=== PATIENT | female | born 1960 | race Caucasian/White ===

== ENCOUNTER 2019-01-09 10:50 | Inpatient (IN) | payer BC ==
[~2019-01-09] VITALS: Ht 309.9 cm; Wt 81.8 kg
[~2019-01-09 10:50] MED LIST: ASPI81TA52 PO; DILT240C52 PO; LISI-232 PO; LORA1TAB PO; NORCO10T PO
[2019-01-09] MEDS ORDERED: aspirin 81mg tab.chew PO ONE (11:10)
[2019-01-09] MEDS ORDERED: nitroGLYCERIN 0.4mg SUBLingual tab SL PRN ×2 (11:40→17:15)
[2019-01-09 11:44] LABS: BASOPHILS # (AUTO) 0.1 X10'3 (0-0.2); BASOPHILS % (AUTO) 0.8 % (0-1); EOSINOPHILS # (AUTO) 0.3 X10'3 (0-0.9); EOSINOPHILS % (AUTO) 2.9 % (0-6); HEMATOCRIT 43.4 % (35.0-45.0); LYMPHOCYTES # (AUTO) 2.2 X10'3 (1.1-4.8); LYMPHOCYTES % (AUTO) 21.4 % (21-51); MEAN CORPUSCULAR HGB CONC 34.6 g/dL (33.0-36.5); MEAN CORPUSCULAR VOLUME 95.4 FL (78-98); MEAN PLATELET VOLUME 7.3 FL (7.4-10.4); MONOCYTES # (AUTO) 0.8 X10'3 (0-0.9); MONOCYTES % (AUTO) 7.4 % (2-12); NEUTROPHILS % (AUTO) 67.5 % (42-75); PLATELET COUNT 290 X10'3 (140-440); RED BLOOD COUNT 4.55 X10'6 (4.20-5.60); RED CELL DISTRIBUTION WIDTH 14.9 % (11.5-14.5); WHITE BLOOD COUNT 10.4 X10'3 (4.5-11.0)
[2019-01-09] MEDS ORDERED: CARV6.256 PO (11:56)
[2019-01-09] MEDS ORDERED: AZIL1TAB3 PO (11:56)
[2019-01-09 11:57] LABS: ALANINE AMINOTRANSFERASE 44 U/L (12-78); ALBUMIN 3.9 G/DL (3.4-5.0); ALBUMIN/GLOBULIN RATIO 1.1 (1.1-1.5); ALKALINE PHOSPHATASE 111 IU/L (46-116); ANION GAP 8 (8-16); ASPARTATE AMINO TRANSFERASE 25 U/L (10-37); BILIRUBIN,TOTAL 0.4 MG/DL (0.1-1.0); BLOOD UREA NITROGEN 23 MG/DL (7-18); BUN/CREATININE RATIO 27.4 (6.6-38.0); CHLORIDE 101 MMOL/L (99-107); CREATININE 0.84 MG/DL (0.40-0.90); GLUCOSE 112 MG/DL (70-104); POTASSIUM 3.7 MMOL/L (3.5-5.1); SODIUM 138 MMOL/L (135-145); TOTAL CARBON DIOXIDE 28.9 MMOL/L (24-32); TOTAL PROTEIN 7.4 G/DL (6.4-8.2); eGFR 70 ML/MIN
[2019-01-09 12:06] LABS: MAGNESIUM 1.9 MG/DL (1.5-2.4)
[2019-01-09] MEDS ORDERED: morphine 4 MG/ML inj SYRINge IV ONE (12:30)
[2019-01-09] MEDS ORDERED: nitroGLYCERIN-Tridil 50MG/D5W 250 ML IV ONE (12:30)
[2019-01-09] MEDS ORDERED: ondansetron/PF 4mg/2ml inj IV ONE (12:30)
[2019-01-09] MEDS ORDERED: normal saline 1000ml 1,000 ML IV ONE (12:30)
[2019-01-09] MEDS ORDERED: ATOR20TA66 PO (13:00)
[2019-01-09] MEDS ORDERED: ALBU18HF2 IH (13:02)
[2019-01-09] MEDS ORDERED: AZIL1TAB2 PO (13:06)
[2019-01-09] MEDS ORDERED: magnesium 2GM in 50ml NS 50 ML IV PRN (13:15)
[2019-01-09] MEDS ORDERED: mag hydrox/Alum hydrox/simeth 30ml oral suspension PO PRN (13:15)
[2019-01-09] MEDS ORDERED: iohexol 350MG/ML 100ml bottle IV ONE (13:15)
[2019-01-09] MEDS ORDERED: potassium Cl 40MEQ/NS 500ml 500 ML IV PRN ×2 (13:15)
[2019-01-09] MEDS ORDERED: magnesium hydroxide 30ml (MOM) UD suspension PO PRN (13:15)
[2019-01-09] MEDS ORDERED: magnesium 4gm in 100ml NS 100 ML IV PRN (13:15)
[2019-01-09] MEDS ORDERED: magnesium Cl slow-release 64mg tablet PO PRN (13:15)
[2019-01-09] MEDS ORDERED: acetaminophen 325mg tablet PO PRN (13:15)
[2019-01-09] MEDS ORDERED: potassium Cl 20 mEq SR tablet PO PRN ×2 (13:15)
[2019-01-09] MEDS ORDERED: labetalol 20mg/4ml (5mg/ml) syringe IV ONE (14:45)
--- NOTE | 2019-01-09 14:49 | NUR ---
PER MD INCREASING TRIDIL RATE FROM 5MCG/HR TO 10/MCG AN HOUR. ALSO ADDING LABETALOL
--- NOTE | 2019-01-09 15:00 | NUR ---
ADMINISTERED LABETALOL IV WITH GOOD EFFECT
[2019-01-09] MEDS ORDERED: heparin 10,000 units/1 ML INJ IV ONE ×2 (15:35→15:45)
[2019-01-09] MEDS ORDERED: heparin 10,000 units/1 ML INJ IV PRN (15:35)
[2019-01-09] MEDS: morphine 4 MG/ML inj SYRINge IV PRN ×3 (15:50→23:59)
[2019-01-09] MEDS: heparin 25,000 UNIT/250ml bag 250 ML IV SCH (16:29)
[2019-01-09 16:32] LABS: BASOPHILS # (AUTO) 0.1 X10'3 (0-0.2); BASOPHILS % (AUTO) 0.5 % (0-1); EOSINOPHILS # (AUTO) 0.3 X10'3 (0-0.9); HEMATOCRIT 39.9 % (35.0-45.0); HEMOGLOBIN 13.8 g/dl (12.0-16.0); LYMPHOCYTES % (AUTO) 21.7 % (21-51); MEAN CORPUSCULAR HEMOGLOBIN 33.2 PG (27.0-31.0); MEAN CORPUSCULAR HGB CONC 34.6 g/dL (33.0-36.5); MEAN CORPUSCULAR VOLUME 95.9 FL (78-98); MEAN PLATELET VOLUME 7.5 FL (7.4-10.4); MONOCYTES # (AUTO) 0.7 X10'3 (0-0.9); MONOCYTES % (AUTO) 7.9 % (2-12); NEUTROPHILS # (AUTO) 6.2 X10'3 (1.8-7.7); NEUTROPHILS % (AUTO) 66.9 % (42-75); PLATELET COUNT 266 X10'3 (140-440); RED BLOOD COUNT 4.16 X10'6 (4.20-5.60); RED CELL DISTRIBUTION WIDTH 14.8 % (11.5-14.5); WHITE BLOOD COUNT 9.3 X10'3 (4.5-11.0)
--- NOTE | 2019-01-09 16:33 | NUR ---
heparin gtt started, called surgical floor to give report, nurse will call me back
[2019-01-09 16:42] LABS: PARTIAL THROMBOPLASTIN TIME 27 SECONDS (22-32)
[2019-01-09] MEDS: ondansetron/PF 4mg/2ml inj IV PRN ×2 (18:16→23:59)
--- NOTE | 2019-01-09 18:22 | NUR ---
zofran given and cool washcloth applied. pt states, feeling so much better.
[2019-01-09 19:10] VITALS: BP 146/68
[2019-01-09] MEDS ORDERED: nicotine 14mg patch - 24hr TD ONE (19:45)
[2019-01-09] MEDS ORDERED: nitroGLYCERIN-Tridil 50MG/D5W 250 ML IV SCH (19:55)
--- NOTE | 2019-01-09 19:55 | NUR ---
Patient requesting nicotine patch. Dr Fuller ordered 14mg patch to be placed now. If BP increases SBP <170 patch is to be removed. Will monitor closely Addendum: 01/09/19 at 2219 by Edawrd Guan RN 2219: SBP 178, Nicotine patch removed at this time
[2019-01-09] MEDS ORDERED: labetalol 20mg/4ml (5mg/ml) syringe IV PRN (20:10)
[2019-01-09 22:00] VITALS: BP 178/77
[2019-01-09] MEDS: acetaminophen 325mg tablet PO PRN (22:02)
[2019-01-09] MEDS: LORazepam 1 MG tablet PO PRN (22:09)
[2019-01-10] VITALS (15 sets, daily range): BP systolic 100–202; BP diastolic 48–93
[2019-01-10] MEDS: heparin 25,000 UNIT/250ml bag 250 ML IV SCH (02:33)
--- NOTE | 2019-01-10 02:46 | NUR ---
PTT 38. 3,500 UNIT BOLUS HEPARIN ADMINISTERED. INCREASED HEPARIN DRIP BY 200 UNITS/HR. NOW INFUSING AT 1200 UNITS/HR.
[2019-01-10] MEDS: acetaminophen 325mg tablet PO PRN (04:58)
[2019-01-10 05:54] LABS: BASOPHILS # (AUTO) 0.1 X10'3 (0-0.2); BASOPHILS % (AUTO) 0.7 % (0-1); EOSINOPHILS # (AUTO) 0.2 X10'3 (0-0.9); EOSINOPHILS % (AUTO) 2.7 % (0-6); HEMATOCRIT 39.4 % (35.0-45.0); HEMOGLOBIN 13.2 g/dl (12.0-16.0); LYMPHOCYTES # (AUTO) 2.1 X10'3 (1.1-4.8); LYMPHOCYTES % (AUTO) 23.6 % (21-51); MEAN CORPUSCULAR HEMOGLOBIN 32.9 PG (27.0-31.0); MEAN CORPUSCULAR HGB CONC 33.5 g/dL (33.0-36.5); MEAN CORPUSCULAR VOLUME 98.1 FL (78-98); MEAN PLATELET VOLUME 7.4 FL (7.4-10.4); MONOCYTES # (AUTO) 0.7 X10'3 (0-0.9); MONOCYTES % (AUTO) 7.7 % (2-12); NEUTROPHILS # (AUTO) 5.8 X10'3 (1.8-7.7); NEUTROPHILS % (AUTO) 65.3 % (42-75); PLATELET COUNT 261 X10'3 (140-440); RED BLOOD COUNT 4.01 X10'6 (4.20-5.60); RED CELL DISTRIBUTION WIDTH 14.9 % (11.5-14.5); WHITE BLOOD COUNT 8.9 X10'3 (4.5-11.0)
--- NOTE | 2019-01-10 06:11 | NUR ---
Problems reprioritized. Patient report given, questions answered & plan of care reviewed with Gia ARREAGA.
--- NOTE | 2019-01-10 06:15 | NUR ---
Patient in room PCU 3015. I have received report from Marcela RN & GIBSON Leon and had the opportunity to ask questions and assume patient care.
[2019-01-10 06:22] LABS: ALBUMIN 3.4 G/DL (3.4-5.0); ANION GAP 8 (8-16); BLOOD UREA NITROGEN 19 MG/DL (7-18); BUN/CREATININE RATIO 20.9 (6.6-38.0); CALCIUM 8.6 MG/DL (8.5-10.1); CHLORIDE 107 MMOL/L (99-107); CHOL/HDL RATIO 4.6 (0.00-4.99); CHOLESTEROL 116 MG/DL (0-200); CREATININE 0.91 MG/DL (0.40-0.90); GLUCOSE 125 MG/DL (70-104); HDL CHOLESTEROL 25 MG/DL (35-60); LDL CHOLESTEROL 62 MG/DL (50-100); POTASSIUM 3.9 MMOL/L (3.5-5.1); SODIUM 145 MMOL/L (135-145); TOTAL CARBON DIOXIDE 30.2 MMOL/L (24-32); TRIGLYCERIDES 217 MG/DL (20-135); eGFR 63 ML/MIN
[2019-01-10] MEDS: morphine 4 MG/ML inj SYRINge IV PRN ×2 (07:14→08:57)
[2019-01-10] MEDS: ondansetron/PF 4mg/2ml inj IV PRN (07:15)
[2019-01-10] MEDS: AZILSARTAN MED PO SCH (08:00)
[2019-01-10] MEDS: K and/or MAG REPLACEMENT MC SCH (08:00)
[2019-01-10] MEDS ORDERED: enoxaparin 40mg/0.4ml syringe SQ SCH (08:00)
[2019-01-10] MEDS: CHLORTHALIDONE PO SCH (08:00)
[2019-01-10] MEDS: aspirin 81mg tab.chew PO SCH (08:53)
[2019-01-10] MEDS: atorvastatin 20mg tablet PO SCH (08:54)
[2019-01-10] MEDS: carvedilol 6.25mg tablet PO SCH ×2 (08:55→20:36)
[2019-01-10] MEDS ORDERED: HYDROmorphone 1 mg/ml syringe IV STA (11:24)
[2019-01-10] MEDS ORDERED: HYDROcodone/acetaminophen 10/325mg tab PO PRN ×2 (11:30→20:00)
[2019-01-10] MEDS ORDERED: HYDROmorphone 1 mg/ml syringe IV PRN (11:30)
[2019-01-10] MEDS ORDERED: HYDROcodone/acetaminophen 5mg/325mg tablet PO PRN (11:35)
[2019-01-10] MEDS: HYDROmorphone inj. 0.5 MG/0.5 ML DISP.SYRIN IV PRN ×2 (15:03→17:38)
--- NOTE | 2019-01-10 18:12 | NUR ---
Problems reprioritized. Patient report given, questions answered & plan of care reviewed with GIBSON Stacy.
[2019-01-10] MEDS ORDERED: LIDOcaine 1% (10mg/ml)w/preservative injection 20ml MDV ONE ×2 (18:21→18:57)
[2019-01-10] MEDS ORDERED: heparin 1,000 UNITS/NS 500ml 500 ML ONE (18:21)
[2019-01-10] MEDS ORDERED: iohexol 350MG/ML 100ml bottle IV ONE (18:21)
[2019-01-10] MEDS ORDERED: midazolam 2 mg/2 ml injection ONE (18:54)
[2019-01-10] MEDS ORDERED: fentaNYL/PF 50MCG/1 ML 2ML syringe ONE (18:54)
[2019-01-10] MEDS ORDERED: hydrALAZINE 20mg/ml inj. IV ONE (19:11)
[2019-01-10] MEDS ORDERED: furosemide 40mg/4ml inj ONE (19:24)
[2019-01-10] MEDS ORDERED: temazepam 15mg capsule PO PRN (20:00)
[2019-01-10] MEDS ORDERED: OXAZEpam 15mg capsule PO PRN (20:00)
[2019-01-10] MEDS ORDERED: ondansetron/PF 4mg/2ml inj IV PRN (20:00)
[2019-01-10] MEDS ORDERED: proCHLORperazine 10 MG/2 ml inj IV PRN (20:00)
[2019-01-10] MEDS ORDERED: ondansetron 4mg rapidly disintigrating tab PO PRN (20:25)
[2019-01-10] MEDS ORDERED: HYDROmorphone inj. 0.5 MG/0.5 ML DISP.SYRIN IM PRN (20:35)
[2019-01-10] MEDS ORDERED: HYDROmorphone 1 mg/ml syringe IM PRN (20:35)
[2019-01-11] VITALS (8 sets, daily range): BP systolic 114–141; BP diastolic 47–103
[2019-01-11] MEDS ORDERED: nitroGLYCERIN 0.4mg/hour patch TD ONE (00:45)
[2019-01-11] MEDS: ondansetron/PF 4mg/2ml inj IV PRN ×3 (03:38→19:13)
[2019-01-11] MEDS ORDERED: HYDROmorphone inj. 0.5 MG/0.5 ML DISP.SYRIN IV PRN (03:40)
[2019-01-11] MEDS ORDERED: HYDROmorphone 1 mg/ml syringe IV PRN (03:40)
--- NOTE | 2019-01-11 04:41 | NUR ---
Patient remained non-compliant with care throughout the night. Refused to let anyone place an IV. unable to run tridil gtt despite multiple attempts ay education regarding blood pressure. Gave IM injections for pain control. Attempted to change position and get up from bed multiple times. 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 States "oh, it figures that you can't just bring the meds in" when explaining that medications have to be approved from the pharmacy before we can give them regarding the changes from IV to IM and back to IV when she agreed at 0300 to let an [employer]RO[employer]OR place an IV in her hand. Patient continues to have 9/10 and 10/10 chest pain. Heart cath was negative, no stents placed. Patients is in room at bedside throughout shift.
[2019-01-11 06:39] LABS: BASOPHILS % (AUTO) 0.3 % (0-1); EOSINOPHILS % (AUTO) 0.1 % (0-6); HEMATOCRIT 40.9 % (35.0-45.0); HEMOGLOBIN 13.9 g/dl (12.0-16.0); LYMPHOCYTES # (AUTO) 0.7 X10'3 (1.1-4.8); LYMPHOCYTES % (AUTO) 5.7 % (21-51); MEAN CORPUSCULAR HEMOGLOBIN 32.8 PG (27.0-31.0); MEAN CORPUSCULAR HGB CONC 33.9 g/dL (33.0-36.5); MEAN CORPUSCULAR VOLUME 96.6 FL (78-98); MEAN PLATELET VOLUME 7.5 FL (7.4-10.4); MONOCYTES # (AUTO) 0.3 X10'3 (0-0.9); MONOCYTES % (AUTO) 2.5 % (2-12); NEUTROPHILS # (AUTO) 10.9 X10'3 (1.8-7.7); NEUTROPHILS % (AUTO) 91.4 % (42-75); PLATELET COUNT 280 X10'3 (140-440); RED BLOOD COUNT 4.23 X10'6 (4.20-5.60); RED CELL DISTRIBUTION WIDTH 14.7 % (11.5-14.5)
--- NOTE | 2019-01-11 06:39 | NUR ---
Patient in room PCU 3015. I have received report from Fermin RN and had the opportunity to ask questions and assume patient care. Pt is sitting up in bed with at bedside. Pt is in no apparent distress, will continue to monitor.
[2019-01-11 07:02] LABS: ALBUMIN 3.8 G/DL (3.4-5.0); ANION GAP 8 (8-16); BLOOD UREA NITROGEN 18 MG/DL (7-18); CALCIUM 8.9 MG/DL (8.5-10.1); CHLORIDE 100 MMOL/L (99-107); CHOL/HDL RATIO 3.3 (0.00-4.99); CHOLESTEROL 127 MG/DL (0-200); CREATININE 0.72 MG/DL (0.40-0.90); GLUCOSE 149 MG/DL (70-104); HDL CHOLESTEROL 38 MG/DL (35-60); LDL CHOLESTEROL 75 MG/DL (50-100); MAGNESIUM 1.9 MG/DL (1.5-2.4); POTASSIUM 3.6 MMOL/L (3.5-5.1); SODIUM 139 MMOL/L (135-145); TOTAL CARBON DIOXIDE 31.4 MMOL/L (24-32); TRIGLYCERIDES 94 MG/DL (20-135); eGFR 83 ML/MIN
[2019-01-11] MEDS: K and/or MAG REPLACEMENT MC SCH (08:00)
[2019-01-11] MEDS: AZILSARTAN MED PO SCH (08:00)
[2019-01-11] MEDS: CHLORTHALIDONE PO SCH (08:00)
[2019-01-11] MEDS: atorvastatin 20mg tablet PO SCH (08:47)
[2019-01-11] MEDS: carvedilol 6.25mg tablet PO SCH ×2 (08:47→20:43)
[2019-01-11] MEDS: aspirin 81mg tab.chew PO SCH (08:47)
[2019-01-11] MEDS ORDERED: ibuprofen tablet 400 MG TABLET PO PRN (10:25)
[2019-01-11] MEDS: ipratropium/albuterol 3ml nebule NEB SCH ×4 (11:00→23:03)
[2019-01-11] MEDS: acetaminophen 325mg tablet PO PRN (16:45)
--- NOTE | 2019-01-11 18:07 | NUR ---
Problems reprioritized. Patient report given, questions answered & plan of care reviewed with Kayla ARREAGA.
[2019-01-11] MEDS: HYDROcodone/acetaminophen 5mg/325mg tablet PO PRN (19:13)
[2019-01-11] MEDS: LORazepam 1 MG tablet PO PRN (20:42)
[2019-01-11] MEDS: famotidine 20mg tablet PO SCH (20:42)
[2019-01-11] MEDS ORDERED: diphenhydrAMINE 25mg capsule PO PRN (21:00)
[2019-01-12] MEDS: HYDROcodone/acetaminophen 5mg/325mg tablet PO PRN (02:36)
[2019-01-12] MEDS: ipratropium/albuterol 3ml nebule NEB SCH (02:43)
[2019-01-12 03:00] VITALS: BP 158/67
[2019-01-12 05:58] LABS: ALBUMIN 3.4 G/DL (3.4-5.0); ANION GAP 4 (8-16); BLOOD UREA NITROGEN 22 MG/DL (7-18); BUN/CREATININE RATIO 22.7 (6.6-38.0); CALCIUM 8.7 MG/DL (8.5-10.1); CHLORIDE 102 MMOL/L (99-107); CREATININE 0.97 MG/DL (0.40-0.90); GLUCOSE 125 MG/DL (70-104); POTASSIUM 3.3 MMOL/L (3.5-5.1); SODIUM 142 MMOL/L (135-145); TOTAL CARBON DIOXIDE 36.1 MMOL/L (24-32); eGFR 59 ML/MIN
[2019-01-12 06:05] LABS: BASOPHILS # (AUTO) 0.1 X10'3 (0-0.2); BASOPHILS % (AUTO) 0.4 % (0-1); EOSINOPHILS % (AUTO) 0.3 % (0-6); HEMATOCRIT 39.8 % (35.0-45.0); HEMOGLOBIN 13.5 g/dl (12.0-16.0); LYMPHOCYTES # (AUTO) 1.9 X10'3 (1.1-4.8); LYMPHOCYTES % (AUTO) 15.3 % (21-51); MEAN CORPUSCULAR HEMOGLOBIN 32.8 PG (27.0-31.0); MEAN CORPUSCULAR HGB CONC 33.9 g/dL (33.0-36.5); MEAN CORPUSCULAR VOLUME 96.7 FL (78-98); MEAN PLATELET VOLUME 7.4 FL (7.4-10.4); MONOCYTES % (AUTO) 8.3 % (2-12); NEUTROPHILS # (AUTO) 9.4 X10'3 (1.8-7.7); NEUTROPHILS % (AUTO) 75.7 % (42-75); PLATELET COUNT 264 X10'3 (140-440); RED BLOOD COUNT 4.11 X10'6 (4.20-5.60); RED CELL DISTRIBUTION WIDTH 14.7 % (11.5-14.5); WHITE BLOOD COUNT 12.4 X10'3 (4.5-11.0)
--- NOTE | 2019-01-12 06:10 | NUR ---
Problems reprioritized. Patient report given, questions answered & plan of care reviewed with Mansi ARREAGA.
--- NOTE | 2019-01-12 06:32 | NUR ---
Patient in room PCU 3015. I have received report from Kayla ARREAGA and had the opportunity to ask questions and assume patient care. Pt resting comfortably in no apparent distress, will continue to monitor.
[2019-01-12 07:00] VITALS: BP 133/75
[2019-01-12] MEDS: carvedilol 6.25mg tablet PO SCH (07:23)
[2019-01-12] MEDS: acetaminophen 325mg tablet PO PRN (07:24)
[2019-01-12] MEDS: atorvastatin 20mg tablet PO SCH (07:32)
[2019-01-12] MEDS: famotidine 20mg tablet PO SCH (07:32)
[2019-01-12] MEDS: aspirin 81mg tab.chew PO SCH (07:33)
[2019-01-12] MEDS: CHLORTHALIDONE PO SCH (07:33)
[2019-01-12] MEDS: AZILSARTAN MED PO SCH (07:33)
[2019-01-12] MEDS: K and/or MAG REPLACEMENT MC SCH (08:00)
[2019-01-12] MEDS ORDERED: ALBU18HF2 IH (09:36)
[2019-01-12] MEDS ORDERED: BUDE10.22 INH (09:36)
--- NOTE | 2019-01-12 10:42 | NUR ---
Reviewed all discharge instructions and education with patient. Instructed pt to follow up with primary care provider in one week. Discontinued IV with canula intact. Removed tele monitor from patient. Vital signs within normal limits and patient discharged in stable condition. Pt left in private vehicle accompanied by spouse. Called new prescription to [facility] on [facility].
== END 2019-01-12 10:35 | disposition home or self-care (01) | DRG 287 ==
LOC: ER 10:50 → ED HOLD 13:13 → EDBEDREQSVC 17:01 → OBSVTOIN 17:14 → PCU 3S 19:00
PROVIDERS: ADMIT Hospitalist; ATTEND Hospitalist
PROC: B32T1ZZ Computerized Tomography (CT Scan) of Left Pulmonary Artery using Low Osmolar Contrast (ICD-10-PCS; principal; 2019-01-09)
PROC: B3201ZZ Computerized Tomography (CT Scan) of Thoracic Aorta using Low Osmolar Contrast (ICD-10-PCS; 2019-01-09)
PROC: B32S1ZZ Computerized Tomography (CT Scan) of Right Pulmonary Artery using Low Osmolar Contrast (ICD-10-PCS; 2019-01-09)
PROC: 4A023N7 Measurement of Cardiac Sampling and Pressure, Left Heart, Percutaneous Approach (ICD-10-PCS; 2019-01-10)
PROC: B2111ZZ Fluoroscopy of Multiple Coronary Arteries using Low Osmolar Contrast (ICD-10-PCS; 2019-01-10)
PROC: B2151ZZ Fluoroscopy of Left Heart using Low Osmolar Contrast (ICD-10-PCS; 2019-01-10)
DX: I25.110 Atherosclerotic heart disease of native coronary artery with unstable angina pectoris (principal); Z68.1 Body mass index [BMI] 19.9 or less, adult; E66.01 Morbid (severe) obesity due to excess calories; E78.00 Pure hypercholesterolemia, unspecified; E78.5 Hyperlipidemia, unspecified; F12.90 Cannabis use, unspecified, uncomplicated; F17.210 Nicotine dependence, cigarettes, uncomplicated; G47.33 Obstructive sleep apnea (adult) (pediatric); I10 Essential (primary) hypertension; I35.0 Nonrheumatic aortic (valve) stenosis; J44.9 Chronic obstructive pulmonary disease, unspecified; Z79.82 Long term (current) use of aspirin; Z80.0 Family history of malignant neoplasm of digestive organs; Z82.5 Family history of asthma and other chronic lower respiratory diseases; Z85.42 Personal history of malignant neoplasm of other parts of uterus; Z87.892 Personal history of anaphylaxis; Z90.710 Acquired absence of both cervix and uterus; Z28.21 Immunization not carried out because of patient refusal; Z95.0 Presence of cardiac pacemaker; Z88.2 Allergy status to sulfonamides; Z79.899 Other long term (current) drug therapy; Z71.6 Tobacco abuse counseling
CPT/HCPCS: 36415; 71045; 71275; 80048; 80053; 80061; 83735; 83880; 84484; 85025; 85610; 85730; 87070; 93005; 93458; 94640; 94760; 96365; 96375; 96376; 99152; 99285; A4620; A6257; C1769; G0378; J0360; J1170; J1644; J1940; J2001; J2250; J2270; J2405; J3010; J3490; J7030; Q0163; Q9967

== ENCOUNTER 2024-04-18 09:25 | Inpatient (IN) | payer BC ==
[~2024-04-18] VITALS: Ht 157.5 cm; Wt 84.9 kg
[~2024-04-18 09:25] MED LIST changes: +ALBU18HF2 IH; -ASPI81TA52 PO; +ATOR20TA66 PO; +AZIL1TAB2 PO; +BUDE10.22 INH; +CARV6.256 PO; -DILT240C52 PO; -LISI-232 PO; -NORCO10T PO
[2024-04-18 10:04] LABS: BASOPHILS # (AUTO) 0.1 X10'3 (0-0.2); BASOPHILS % (AUTO) 0.7 % (0-1); EOSINOPHILS # (AUTO) 0.1 X10'3 (0-0.9); EOSINOPHILS % (AUTO) 1.5 % (0-6); HEMATOCRIT 38.1 % (35.0-45.0); HEMOGLOBIN 12.5 g/dl (12.0-16.0); LYMPHOCYTES # (AUTO) 0.8 X10'3 (1.1-4.8); LYMPHOCYTES % (AUTO) 9.5 % (21-51); MEAN CORPUSCULAR HEMOGLOBIN 30.4 PG (27.0-31.0); MEAN CORPUSCULAR HGB CONC 32.7 g/dL (33.0-36.5); MEAN CORPUSCULAR VOLUME 92.9 FL (78-98); MEAN PLATELET VOLUME 7.8 FL (7.4-10.4); MONOCYTES # (AUTO) 0.6 X10'3 (0-0.9); MONOCYTES % (AUTO) 7.3 % (2-12); NEUTROPHILS # (AUTO) 6.9 X10'3 (1.8-7.7); PLATELET COUNT 275 X10'3 (140-440); RED CELL DISTRIBUTION WIDTH 14.7 % (11.5-14.5); WHITE BLOOD COUNT 8.5 X10'3 (4.5-11.0)
[2024-04-18 10:09] LABS: ALANINE AMINOTRANSFERASE 61 U/L (12-78); ALBUMIN 3.7 G/DL (3.4-5.0); ALKALINE PHOSPHATASE 106 IU/L (46-116); ANION GAP 7 (8-16); ASPARTATE AMINO TRANSFERASE 31 U/L (10-37); BILIRUBIN,TOTAL 0.4 MG/DL (0.1-1.0); BLOOD UREA NITROGEN 29 MG/DL (7-18); BUN/CREATININE RATIO 21.2 (10.0-20.0); CALCIUM 9.1 MG/DL (8.5-10.1); CHLORIDE 102 MMOL/L (99-107); CREATININE 1.37 MG/DL (0.40-0.90); GLUCOSE 154 MG/DL (70-104); POTASSIUM 3.9 MMOL/L (3.5-5.1); SODIUM 135 MMOL/L (135-145); TOTAL CARBON DIOXIDE 25.7 MMOL/L (24-32); TOTAL PROTEIN 7.3 G/DL (6.4-8.2); eCRCL 33 ML/MIN; eGFR 39 ML/MIN
[2024-04-18 10:16] LABS: PRO BRAIN NATRIURETIC PEPTIDE 1767 PG/ML (0-125)
[2024-04-18 17:45] LABS: BASOPHILS # (AUTO) 0.1 X10'3 (0-0.2); BASOPHILS % (AUTO) 0.8 % (0-1); EOSINOPHILS # (AUTO) 0.2 X10'3 (0-0.9); EOSINOPHILS % (AUTO) 2.2 % (0-6); HEMATOCRIT 40.4 % (35.0-45.0); HEMOGLOBIN 13.4 g/dl (12.0-16.0); LYMPHOCYTES % (AUTO) 10.7 % (21-51); MEAN CORPUSCULAR HGB CONC 33.1 g/dL (33.0-36.5); MEAN CORPUSCULAR VOLUME 93.5 FL (78-98); MEAN PLATELET VOLUME 7.9 FL (7.4-10.4); MONOCYTES # (AUTO) 0.9 X10'3 (0-0.9); MONOCYTES % (AUTO) 10.3 % (2-12); NEUTROPHILS # (AUTO) 6.7 X10'3 (1.8-7.7); PLATELET COUNT 299 X10'3 (140-440); RED BLOOD COUNT 4.32 X10'6 (4.20-5.60); RED CELL DISTRIBUTION WIDTH 14.7 % (11.5-14.5); WHITE BLOOD COUNT 8.9 X10'3 (4.5-11.0)
[2024-04-18 17:51] LABS: APTT 24 SECONDS (22-32); PROTHROMBIN TIME 10.5 SECONDS (9.0-12.0)
[2024-04-18 18:08] LABS: ALANINE AMINOTRANSFERASE 55 U/L (12-78); ALBUMIN 3.7 G/DL (3.4-5.0); ALBUMIN/GLOBULIN RATIO 0.9 (1.1-1.5); ALKALINE PHOSPHATASE 100 IU/L (46-116); ANION GAP 9 (8-16); ASPARTATE AMINO TRANSFERASE 41 U/L (10-37); BILIRUBIN,TOTAL 0.3 MG/DL (0.1-1.0); BLOOD UREA NITROGEN 27 MG/DL (7-18); BUN/CREATININE RATIO 22.3 (10.0-20.0); CALCIUM 9.2 MG/DL (8.5-10.1); CHLORIDE 103 MMOL/L (99-107); CREATININE 1.21 MG/DL (0.40-0.90); GLUCOSE 84 MG/DL (70-104); SODIUM 135 MMOL/L (135-145); TOTAL CARBON DIOXIDE 22.8 MMOL/L (24-32); TOTAL PROTEIN 7.6 G/DL (6.4-8.2); eCRCL 37 ML/MIN; eGFR 45 ML/MIN
[2024-04-18 18:19] LABS: PRO BRAIN NATRIURETIC PEPTIDE 1916 PG/ML (0-125); THYROID STIMULATING HORMONE 2.34 ulU/ml (0.34-4.50)
[2024-04-18] MEDS: ipratropium/albuterol 3ml nebule NEB STA (19:19)
[2024-04-18 19:21] VITALS: PULSE 65; RESP 18; O2SAT 90
[2024-04-18 19:29] VITALS: PULSE 68; RESP 18
[2024-04-18] MEDS ORDERED: potassium Cl 40MEQ/1/2NS 520ml 520 ML IV PRN (20:35)
[2024-04-18] MEDS ORDERED: acetaminophen 325mg tablet PO PRN (20:35)
[2024-04-18] MEDS ORDERED: magnesium 4gm in 100ml NS 100 ML IV PRN (20:35)
[2024-04-18] MEDS ORDERED: potassium Cl 20 mEq SR tablet PO PRN ×2 (20:35)
[2024-04-18] MEDS ORDERED: magnesium hydroxide 30ml (MOM) UD suspension PO PRN (20:35)
[2024-04-18] MEDS ORDERED: magnesium Cl slow-release 64mg tablet PO PRN (20:35)
[2024-04-18] MEDS ORDERED: ondansetron/PF 4mg/2ml inj IV PRN (20:35)
[2024-04-18] MEDS ORDERED: magnesium 2GM in 50ml NS 50 ML IV PRN (20:35)
[2024-04-18] MEDS ORDERED: mag hydrox/Alum hydrox/simeth 30ml oral suspension PO PRN (20:35)
[2024-04-18] MEDS ORDERED: PERFLUTREN PROTEIN-A MICROSPHR (Optison) 0.22 MG/ML 3ML VIAL IV PRN (20:35)
[2024-04-18] MEDS ORDERED: glucagon, human recombinant 1mg kit SUBCUT PRN (20:50)
[2024-04-18] MEDS ORDERED: dextrose 50%-water 50ml dispensing syringe IV PRN ×2 (20:50)
[2024-04-18] MEDS ORDERED: DEXTROSE 15 GM of carb/4 tabs (each vial/BOTTLE has 4 tablets) PO PRN ×2 (20:50)
[2024-04-18] MEDS: furosemide 10 MG/1 ML 10ml inj IV ONE (21:22)
[2024-04-18] MEDS: dexamethasone sod phosphate 10mg/ml inj IV STA (21:23)
[2024-04-18] MEDS: INSULIN LISPRO 100 UNIT/ML INSULN.PEN MULTI-DOSE SQ SCH (22:20)
[2024-04-18] MEDS: temazepam 15mg capsule PO PRN (23:35)
[2024-04-18 23:50] VITALS: BP 157/108; PULSE 68; RESP 17; TEMP 97.5; O2SAT 93
[2024-04-19] VITALS (14 sets, daily range): BP systolic 142–173; BP diastolic 53–78; PULSE 64–90; RESP 13–20; TEMP 97.4–99.2; O2SAT 93–98
[2024-04-19 07:07] LABS: BASOPHILS % (AUTO) 0.3 % (0-1); EOSINOPHILS % (AUTO) 0.2 % (0-6); HEMATOCRIT 37.8 % (35.0-45.0); HEMOGLOBIN 12.7 g/dl (12.0-16.0); LYMPHOCYTES # (AUTO) 0.4 X10'3 (1.1-4.8); LYMPHOCYTES % (AUTO) 3.9 % (21-51); MEAN CORPUSCULAR HEMOGLOBIN 31.2 PG (27.0-31.0); MEAN CORPUSCULAR HGB CONC 33.6 g/dL (33.0-36.5); MEAN CORPUSCULAR VOLUME 92.7 FL (78-98); MEAN PLATELET VOLUME 7.5 FL (7.4-10.4); MONOCYTES # (AUTO) 0.1 X10'3 (0-0.9); NEUTROPHILS % (AUTO) 94.6 % (42-75); PLATELET COUNT 304 X10'3 (140-440); RED BLOOD COUNT 4.07 X10'6 (4.20-5.60); RED CELL DISTRIBUTION WIDTH 14.3 % (11.5-14.5); WHITE BLOOD COUNT 10.6 X10'3 (4.5-11.0)
[2024-04-19 07:29] LABS: ALANINE AMINOTRANSFERASE 44 U/L (12-78); ALBUMIN 3.7 G/DL (3.4-5.0); ALKALINE PHOSPHATASE 91 IU/L (46-116); ANION GAP 12 (8-16); ASPARTATE AMINO TRANSFERASE 18 U/L (10-37); BILIRUBIN,TOTAL 0.5 MG/DL (0.1-1.0); BLOOD UREA NITROGEN 30 MG/DL (7-18); BUN/CREATININE RATIO 23.4 (10.0-20.0); CHLORIDE 102 MMOL/L (99-107); CREATININE 1.28 MG/DL (0.40-0.90); GLUCOSE 180 MG/DL (70-104); MAGNESIUM 2.2 MG/DL (1.5-2.4); POTASSIUM 4.1 MMOL/L (3.5-5.1); SODIUM 141 MMOL/L (135-145); TOTAL PROTEIN 7.3 G/DL (6.4-8.2); eCRCL 35 ML/MIN; eGFR 42 ML/MIN
[2024-04-19] MEDS: albuterol 2.5 MG/3 ML nebule NEB PRN (07:49)
[2024-04-19] MEDS: docusate sod 100mg capsule PO SCH (08:00)
[2024-04-19] MEDS: K and/or MAG REPLACEMENT MC SCH (08:00)
[2024-04-19] MEDS: furosemide 10 MG/1 ML 10ml inj IV SCH (08:03)
[2024-04-19] MEDS: carVEDilol 12.5mg tablet PO SCH (08:04)
[2024-04-19] MEDS: heparin, porcine 5000 units/ml vial SQ SCH (08:05)
[2024-04-19] MEDS ORDERED: AMLO5TAB16 PO (11:10)
[2024-04-19] MEDS ORDERED: DULA0.75 SQ (11:10)
[2024-04-19] MEDS ORDERED: CLON0.1T2 PO (11:10)
[2024-04-19] MEDS ORDERED: BUPR-564 PO (11:10)
[2024-04-19] MEDS ORDERED: HYDR100T27 PO (11:10)
[2024-04-19] MEDS ORDERED: LORazepam 1 MG tablet PO PRN (17:50)
[2024-04-19] MEDS ORDERED: DULAGLUTIDE 0.75 MG SQ SCH (17:50)
[2024-04-19] MEDS ORDERED: non-formulary drug (Albuterol Sulfate (Ventolin Hfa) 2 PUFFS) IH PRN (17:50)
[2024-04-19] MEDS ORDERED: cloNIDine 0.1 mg tablet PO PRN (17:50)
[2024-04-19] MEDS: amLODIPine 5mg tablet PO SCH (18:24)
[2024-04-19] MEDS: atorvastatin 20mg tablet PO SCH (18:24)
[2024-04-19] MEDS: budesonide 0.5mg/2ml UD nebule IH SCH (19:39)
[2024-04-19] MEDS: albuterol 2.5 MG/3 ML nebule NEB SCH (19:39)
[2024-04-19] MEDS: carvedilol 6.25mg tablet PO SCH (22:34)
[2024-04-19] MEDS: nicotine 14mg patch - 24hr TD SCH (22:36)
[2024-04-20] VITALS (7 sets, daily range): BP systolic 118–146; BP diastolic 75–77; PULSE 65–96; RESP 16–20; TEMP 96.8–97.7; O2SAT 93–98
[2024-04-20 07:19] LABS: BASOPHILS # (AUTO) 0.1 X10'3 (0-0.2); BASOPHILS % (AUTO) 0.4 % (0-1); EOSINOPHILS # (AUTO) 0.1 X10'3 (0-0.9); EOSINOPHILS % (AUTO) 0.4 % (0-6); HEMATOCRIT 37.8 % (35.0-45.0); HEMOGLOBIN 12.5 g/dl (12.0-16.0); LYMPHOCYTES # (AUTO) 1.3 X10'3 (1.1-4.8); LYMPHOCYTES % (AUTO) 10.2 % (21-51); MEAN CORPUSCULAR HEMOGLOBIN 30.8 PG (27.0-31.0); MEAN CORPUSCULAR HGB CONC 33.1 g/dL (33.0-36.5); MEAN CORPUSCULAR VOLUME 93.1 FL (78-98); MEAN PLATELET VOLUME 7.6 FL (7.4-10.4); MONOCYTES # (AUTO) 0.8 X10'3 (0-0.9); MONOCYTES % (AUTO) 6.5 % (2-12); NEUTROPHILS # (AUTO) 10.4 X10'3 (1.8-7.7); NEUTROPHILS % (AUTO) 82.5 % (42-75); PLATELET COUNT 314 X10'3 (140-440); RED BLOOD COUNT 4.07 X10'6 (4.20-5.60); RED CELL DISTRIBUTION WIDTH 14.6 % (11.5-14.5); WHITE BLOOD COUNT 12.6 X10'3 (4.5-11.0)
[2024-04-20] MEDS: buPROPion SR 150mg tablet PO SCH (07:37)
[2024-04-20 07:45] LABS: ALANINE AMINOTRANSFERASE 45 U/L (12-78); ALBUMIN 3.6 G/DL (3.4-5.0); ALKALINE PHOSPHATASE 83 IU/L (46-116); ANION GAP 7 (8-16); ASPARTATE AMINO TRANSFERASE 15 U/L (10-37); BILIRUBIN,TOTAL 0.3 MG/DL (0.1-1.0); BLOOD UREA NITROGEN 38 MG/DL (7-18); BUN/CREATININE RATIO 29.7 (10.0-20.0); CALCIUM 8.7 MG/DL (8.5-10.1); CHLORIDE 102 MMOL/L (99-107); CREATININE 1.28 MG/DL (0.40-0.90); GLUCOSE 126 MG/DL (70-104); POTASSIUM 3.6 MMOL/L (3.5-5.1); SODIUM 142 MMOL/L (135-145); TOTAL PROTEIN 7.1 G/DL (6.4-8.2); eCRCL 35 ML/MIN; eGFR 42 ML/MIN
== END 2024-04-20 15:28 | disposition home or self-care (01) | DRG 291 ==
LOC: ER 09:26 → PCU 3S 20:37
PROVIDERS: ADMIT Internal Medicine; ATTEND Internal Medicine
DX: I11.0 Hypertensive heart disease with heart failure (principal); J96.01 Acute respiratory failure with hypoxia; N17.9 Acute kidney failure, unspecified; I25.10 Atherosclerotic heart disease of native coronary artery without angina pectoris; I50.9 Heart failure, unspecified; E78.00 Pure hypercholesterolemia, unspecified; J44.9 Chronic obstructive pulmonary disease, unspecified; F17.210 Nicotine dependence, cigarettes, uncomplicated; F10.90 Alcohol use, unspecified, uncomplicated; Z88.2 Allergy status to sulfonamides; Z79.899 Other long term (current) drug therapy; Z90.710 Acquired absence of both cervix and uterus; Z90.49 Acquired absence of other specified parts of digestive tract; Z95.0 Presence of cardiac pacemaker; Z88.1 Allergy status to other antibiotic agents
CPT/HCPCS: 36415; 71045; 80053; 82948; 83036; 83735; 83880; 84132; 84439; 84443; 84484; 85025; 85610; 85730; 87081; 87502; 87503; 93005; 93306; 94640; 94760; 99291; A4615; G0378; J1100; J1644; J1815; J1940

== ENCOUNTER 2024-05-01 05:55 | Day surgery (SDC) | payer BC ==
[2024-04-30 11:43] LABS: BASOPHILS # (AUTO) 0.1 X10'3 (0-0.2); BASOPHILS % (AUTO) 0.9 % (0-1); EOSINOPHILS # (AUTO) 0.1 X10'3 (0-0.9); EOSINOPHILS % (AUTO) 1.5 % (0-6); HEMATOCRIT 40.1 % (35.0-45.0); HEMOGLOBIN 13.4 g/dl (12.0-16.0); LYMPHOCYTES # (AUTO) 0.8 X10'3 (1.1-4.8); LYMPHOCYTES % (AUTO) 8.6 % (21-51); MEAN CORPUSCULAR HEMOGLOBIN 30.8 PG (27.0-31.0); MEAN CORPUSCULAR HGB CONC 33.4 g/dL (33.0-36.5); MEAN CORPUSCULAR VOLUME 92.4 FL (78-98); MEAN PLATELET VOLUME 7.6 FL (7.4-10.4); MONOCYTES # (AUTO) 0.6 X10'3 (0-0.9); MONOCYTES % (AUTO) 6.2 % (2-12); NEUTROPHILS # (AUTO) 7.8 X10'3 (1.8-7.7); NEUTROPHILS % (AUTO) 82.8 % (42-75); PLATELET COUNT 334 X10'3 (140-440); RED BLOOD COUNT 4.34 X10'6 (4.20-5.60); RED CELL DISTRIBUTION WIDTH 14.6 % (11.5-14.5); WHITE BLOOD COUNT 9.4 X10'3 (4.5-11.0)
[2024-04-30 11:55] LABS: ALBUMIN 3.7 G/DL (3.4-5.0); ANION GAP 6 (8-16); BLOOD UREA NITROGEN 35 MG/DL (7-18); BUN/CREATININE RATIO 21.7 (10.0-20.0); CALCIUM 9.2 MG/DL (8.5-10.1); CHLORIDE 103 MMOL/L (99-107); CREATININE 1.61 MG/DL (0.40-0.90); GLUCOSE 156 MG/DL (70-104); POTASSIUM 4.2 MMOL/L (3.5-5.1); SODIUM 139 MMOL/L (135-145); TOTAL CARBON DIOXIDE 30.4 MMOL/L (24-32); eGFR 32 ML/MIN
[2024-04-30 11:56] LABS: APTT 25 SECONDS (22-32); PROTHROMBIN TIME 10.3 SECONDS (9.0-12.0)
[2024-05-01] VITALS (9 sets, daily range): BP systolic 110–146; BP diastolic 53–67; PULSE 60–65; RESP 16; TEMP 98.4; O2SAT 3–97
[~2024-05-01] VITALS: Ht 157.5 cm; Wt 82.0 kg
[~2024-05-01 05:55] MED LIST changes: +AMLO5TAB16 PO; -AZIL1TAB2 PO; +BUPR-564 PO; +CLON0.1T2 PO; +DULA0.75 SQ; +HYDR100T27 PO; +cefazolin 2gm/D5W 100mL 100 ML IV ONE
[2024-05-01] MEDS ORDERED: CARV25TA3 PO (06:22)
[2024-05-01] MEDS ORDERED: HYDR50TA46 PO (06:24)
[2024-05-01] MEDS ORDERED: HYDR25TA4 PO (06:28)
[2024-05-01] MEDS ORDERED: FURO20TA4 PO (06:28)
[2024-05-01] MEDS ORDERED: midazolam 1 mg/ML 2ml injection ONE ×2 (07:17→08:02)
[2024-05-01] MEDS ORDERED: fentaNYL/PF 50MCG/1 ML 2ML syringe ONE (07:18)
[2024-05-01] MEDS ORDERED: LIDOcaine 1% W/epiNEPHrine 1:100,000 20ml vial ONE ×2 (07:20→08:03)
[2024-05-01] MEDS ORDERED: ceFAZolin 1000mg inj ONE (07:20)
[2024-05-01] MEDS ORDERED: diphenhydrAMINE 50 mg/ml inj ONE (08:14)
[2024-05-01] MEDS ORDERED: HYDROcodone/acetaminophen 10/325mg tab PO PRN (09:10)
[2024-05-01] MEDS: vancomycin/NS 1 GM in NS 250 ML IV ONE (09:38)
[2024-05-01] MEDS: HYDROcodone/acetaminophen 5mg/325mg tablet PO PRN (11:00)
== END 2024-05-01 11:50 | disposition home or self-care (01) ==
LOC: SSTAY O 05:55
PROVIDERS: ATTEND Internal Medicine Cardiovascular Disease
DX: I49.5 Sick sinus syndrome (principal); I10 Essential (primary) hypertension; I25.10 Atherosclerotic heart disease of native coronary artery without angina pectoris; E11.9 Type 2 diabetes mellitus without complications; E78.5 Hyperlipidemia, unspecified; G47.30 Sleep apnea, unspecified; Z79.899 Other long term (current) drug therapy; Z98.890 Other specified postprocedural states; Z88.2 Allergy status to sulfonamides; Z82.49 Family history of ischemic heart disease and other diseases of the circulatory system; Z80.9 Family history of malignant neoplasm, unspecified
CPT/HCPCS: 33228; 36415; 80048; 82948; 85025; 85610; 85730; 93005; 99152; 99153; C1785; J0690; J1200; J2250; J3010; J3370; J3490; J7030; A4615; A6449